=== PATIENT | female | born 1995 | race African-American/Black ===

== ENCOUNTER 2019-08-14 08:52 | Observation (INO) | payer SELFPAY ==
[2019-08-14] VITALS (11 sets, daily range): BP systolic 120–145; BP diastolic 67–100; PULSE 81–108; RESP 16–22; TEMP 36.4–37.1; O2SAT 100; BMI 24.7
--- NOTE | ~2019-08-14 | CT_ITS ---
EXAMINATION: CT abdomen pelvis w con EXAM DATE: 08/14/2019 13:10 INDICATION: Nausea vomiting and diarrhea, symptoms 3 days. History of irritable bowel syndrome. TECHNIQUE: Spiral CT of the abdomen and pelvis was performed without contrast. Axial, coronal and s agittal images were reviewed. The dose-length product (DLP) for this examination was 242.18 mGy-cm. The exposure was tailored according to patient size (auto mA exposure control), and iterative recons truction (ASIR) was used as additional dose reduction technique. There is no prior study for compari son. FINDINGS: The liver, spleen, adrenal glands and pancreas are unremarkable. Gallbladder is unremarkab le. No biliary obstruction. Portal and splenic veins are patent. Kidneys enhance symmetrically. T here is no hydronephrosis. There is IUD which appears to be centrally located within the endometriu m, expected position. The bladder is unremarkable. There is no retroperitoneal or pelvic lymphadeno minh. The appendix is normal. The stomach and small bowel are unremarkable. There is moderate amount of c olonic stool. No free intraperitoneal gas. The heart is normal in size. There are no pericardial or pleural effusions. The lung bases are unremarkable. The bones are unremarkable. IMPRESSION: 1. Moderate amount of colonic stool. Reviewed, dictated and finalized at location B. [employer]
--- NOTE | 2019-08-14 09:03 | ED.NAVMDI ---
HPI - Nausea/Vomiting/Diarrhea General Chief complaint: Nausea/Vomiting/Diarrhea Stated complaint: N/V/D X3D HX IBS Time Seen by Provider: 08/14/19 09:00 Source: patient and RN notes reviewed Mode of arrival: ambulatory Limitations: no limitations History of Present Illness HPI Narrative: Pt is a 23 y/o -[place] Citizen female with a Hx of IBS, who presents to the ED with c/o nausea and vomiting starting 3-4 days ago. She notes that she was diagnosed with pneumonia last week. Pt states that she has since finished a course of antibiotics, and notes that her cough has improved. She states that she has been unable to keep anything down for the past 3-4 days due to her vomiting. Pt also reports epigastric pain secondary to her vomiting, constipation, and dizziness, but denies any diarrhea, fever, or chills. She notes that she hasn't had a BM for the past 3-4 days, and states that she has only been able to belch. Pt notes that she has a Hx of similar symptoms, stating that they are IBS flare-ups of an unknown cause. She notes that she has been taking Zofran and Promethazine for her symptoms, stating that she last took Promethazine last night. MD elicited complaint: nausea and vomiting Pertinent past history: other (IBS) Onset (ago): day(s) (3-4) Associated nausea: Yes Associated abdominal pain: Yes Location of pain: epigastric Associated symptoms: other (dizziness; constipation; decreased intake) Treatment prior to arrival: other (Zofran; Promethazine) Related Data Home Medications Medication Instructions Recorded Confirmed escitalopram oxalate 10 mg PO DAILY 08/14/19 08/14/19 ondansetron HCl [Zofran] 4 mg PO DAILY PRN 08/14/19 08/14/19 promethazine 25 mg BYMOUTH DAILY PRN 08/14/19 08/14/19 propranolol 10 mg PO Q12H PRN 08/14/19 08/14/19 Allergies Allergy/AdvReac Type Severity Reaction Status Date / Time Penicillins Allergy Intermediate Rash Verified 08/14/19 09:08 Review of Systems Review of Systems: All systems reviewed & are unremarkable except as noted in HPI and below Constitutional: Constitutional: Denies chills, Denies fever(s) and Reports other (decreased intake) Gastrointestinal: Gastrointestinal: Reports abdominal pain (epigastric pain), Reports constipation, Denies diarrhea, Reports nausea and Reports vomiting Neurologic: Reports dizziness PMFSH Past Medical History Medical History (Updated 08/14/19 @ 17:48 by Bernadette Solano MD) IBS (irritable bowel syndrome) Pneumonia Surgical History Surgical History Hx of endoscopy upper GI Family History Family History (Updated 08/14/19 @ 15:40 by Yun Dan RN) Mother Diabetes mellitus Hypertension Social History Social History (Updated 08/14/19 @ 09:15 by Mann Amezcua) Smoking status: Never smoker Alcohol intake: current Drinks per week: 1 Substance use: never Gender identity (if verbalized by the patient): Female Spiritual care concerns: No Agree to blood products: Yes Exam Narrative: Exam Narrative: GENERAL: Well-appearing, well-nourished, patient is dry heaving HEAD: Normocephalic, atraumatic EYES: PERRLA and EOMI, conjunctiva clear without discharge THROAT:Mucous membranes moist, Oropharynx normal without erythema, exudate, peritonsillar swelling or fluctuance NECK: Supple, without lymphadenopathy or mass RESPIRATORY: No respiratory distress, Airway patent, Respirations non-labored, Clear to auscultation without rales, rhonchi or wheeze HEART: Regular rate and rhythm. No murmur heard. Normal peripheral pulses. ABDOMEN: Soft, mild diffuse tenderness, nondistended, normal active bowel sounds. No masses. No rebound or guarding, No organomegaly. EXTREMITIES: No edema, normal strength with full range of motion. SKIN: Warm, dry, normal color without rash NEURO: Alert and oriented x3. CN 2-12 grossly intact. No focal deficits. PSYCH: Normal mood and affect. Course Ree
[2019-08-14] MEDS: PROMETHAZINE HCL 25 MG/ML AMPUL 12.5 MG IV PUSH ×2 (09:25→15:29)
[2019-08-14] MEDS: FAMOTIDINE 20 MG/2 ML VIAL IV PUSH ×2 (09:26→20:10)
[2019-08-14] MEDS: LACTATED RINGERS 1,000 ML 999 ML IV CONT (09:29)
[2019-08-14 09:40] LABS: Basophils Percent Auto 0.1 % (0.2-1.2); Eosinophils Absolute Auto 0.1 K/mm3 (0-0.3); Eosinophils Percent Auto 0.7 % (0-4.4); Hematocrit 41.8 % (37.0-47.0); Hemoglobin 13.1 g/dL (12.0-15.0); Immature Granulocyte Absolute 0.02 K/mm3 (0.00-0.031); Immature Granulocyte Percent A 0.3 % (0-0.5); Lymphocytes Absolute Auto 2.08 K/mm3 (0.9-3.2); Mean Corpuscular HGB Conc 31.3 g/dl (32-36); Mean Corpuscular Volume 86.2 fl (80-100); Mean Platelet Volume 10.9 fl (7.4-10.4); Monocytes Absolute Auto 0.9 K/mm3 (0.1-0.6); Neutrophils Absolute Auto 4.2 K/mm3 (1.3-6.7); Neutrophils Percent Auto 57.9 % (45.5-73.1); Platelet Count Result 367 k/mm3 (150-375); Red Blood Count 4.85 M/mm3 (4.2-5.4); Red Cell Distribution Width 13.3 % (11.5-14.5); White Blood Count 7.2 K/mm3 (4.5-10.0)
[2019-08-14 09:51] LABS: Alanine Aminotransferase 41 U/L (4-35); Albumin Level 4.6 g/dL (3.5-5.1); Alkaline Phosphatase 118 U/L (38-126); Aspartate Amino Transferase 32 U/L (14-36); Bilirubin,Total 0.5 mg/dL (0.2-1.3); Blood Urea Nitrogen 7 mg/dL (7-17); Calcium 9.1 mg/dL (8.4-10.2); Carbon Dioxide 26 mmol/L (22-30); Chloride 100 mmol/L (98-107); Estimated CRCL calculation 102 ml/min; Estimated Glomerular Filt Rate > 60; Glucose 109 mg/dL (65-105); Lipase 163 U/L (23-300); Potassium 3.2 mmol/L (3.4-5.0); Sodium 137 mmol/L (137-145)
[2019-08-14 09:54] LABS: Add Urine Microscopic? YES; Appearance Urine Clear (Clear); Bacteria Urine Trace /hpf; Bilirubin Urine Negative (Negative); Blood Urine 1+ (Negative); Color Urine Yellow (Yellow); Glucose Urine UA Negative (Negative); Ketones Urine Trace mg/dL (Negative); Leukocyte Esterase Ur Negative LEU/UL (Negative); Mucus Urine Moderate /lpf; Nitrate Urine Negative (Negative); Protein Urine Negative (Negative); Specific Grav Ur 1.024 (1.001-1.035); Squamous Epithelial Cell Urine Few /hpf (Few); Urobilinogen Urine Negative mg/dL (<2.0); WBC Urine 0-3 /hpf
[2019-08-14] MEDS: METOCLOPRAMIDE HCL INJ 10 MG/2 ML VIAL IV PUSH (10:34)
--- NOTE | 2019-08-14 12:24 | PC.NURSE ---
pt drowsy. vitals stable. denies nausea at this time. crackers and water offered as po challenge per md orders
[2019-08-14] MEDS: PANTOPRAZOLE SODIUM IV 40 MG VIAL IV PUSH (13:19)
[2019-08-14] MEDS: ONDANSETRON INJ 4 MG/2 ML VIAL IV PUSH ×2 (13:19→20:14)
--- NOTE | 2019-08-14 15:17 | PC.NURSE ---
This patient, Fermin Gomez, was admitted to 2 Medical Room 259-. Patient/family oriented to hospital policies and general routines including ID bracelet, bed and alarms, visiting hours, pain management, procedures, bathroom and other care routines, personal items, smoking policy, room service/diet, and visiting hours. Valuables list has been completed. Information on how to activate the Rapid Response Team has been discussed. Patient/Family are encouraged to report perceived risks to care and to ask questions if they do not understand what they are told or what they should do.
[2019-08-14] MEDS: LACTATED RINGERS 1,000 ML 125 ML IV CONT (15:29)
--- NOTE | 2019-08-14 18:09 | PM.IMHP ---
H&P: HPI History of Present Illness Chief complaint: intractable nausea and vomiting Narrative: Fermin Gomez is a 23 year old female, history of IBS, under GI in [place], pt from [place], studying here. Pt has been nauseated for 3 days has not opened her bowel for 3-4 days, feels fullness in her belly, usually on phergenan at home. Pt had egd before not had colonoscopy, ct scan here, shows moderate stool. ED doctors mentions recent pneumonia pt denies SOB or cough here. Pt appears anxious. Review of Systems Constitutional: Constitutional: Reports fatigue, Denies fever(s) and Reports poor appetite Respiratory: Respiratory: Denies no additional respiratory complaints Gastrointestinal: Gastrointestinal: Reports constipation and Reports GI cramping Neurologic: Denies system reviewed and no additional complaints, except as documented Psychiatric: Psychiatric: Reports anxiety PMFSH Past Medical History Medical History IBS (irritable bowel syndrome) Pneumonia Surgical History Surgical History Hx of endoscopy upper GI Family History Family History Mother Diabetes mellitus Hypertension Social History Social History Smoking status: Never smoker Alcohol intake: current Drinks per week: 1 Substance use: never Gender identity (if verbalized by the patient): Female Spiritual care concerns: No Agree to blood products: Yes Meds Home Medications and Allergies Home Medications Medication Instructions Recorded Confirmed Type escitalopram oxalate 10 mg PO DAILY 08/14/19 08/14/19 History ondansetron HCl [Zofran] 4 mg PO DAILY PRN 08/14/19 08/14/19 History promethazine 25 mg BYMOUTH DAILY PRN 08/14/19 08/14/19 History propranolol 10 mg PO Q12H PRN 08/14/19 08/14/19 History calcium polycarbophil [Fiber 1,250 mg PO BID #60 tablet 08/15/19 Rx (calcium polycarbophil)] docusate sodium 100 mg PO Q12HR #60 cap 08/15/19 Rx ondansetron 4 mg PO DAILY PRN #30 tablet 08/15/19 Rx polyethylene glycol 3350 [Miralax] 17 g PO QAM #60 ea 08/15/19 Rx promethazine 25 mg PO DAILY PRN #30 tablet 08/15/19 Rx Allergies Allergy/AdvReac Type Severity Reaction Status Date / Time Penicillins Allergy Intermediate Rash Verified 08/14/19 09:08 Vital Signs Vital Signs - 24 hr 08/14/19 08:57 08/14/19 09:32 08/14/19 09:34 Temperature 36.4 C L Pulse Rate 107 H 95 97 Respiratory Rate 22 H Blood Pressure 145/100 H 130/94 H 132/98 H Pulse Oximetry 100 08/14/19 09:35 08/14/19 10:35 08/14/19 12:24 Temperature Pulse Rate 108 H 85 88 Respiratory Rate 16 Blood Pressure 144/93 H 129/85 138/78 Pulse Oximetry 100 08/14/19 13:23 08/14/19 14:58 08/14/19 14:59 Temperature 37.1 C 37.1 C Pulse Rate 86 86 86 Respiratory Rate 18 18 18 Blood Pressure 120/85 123/91 H 123/91 H Pulse Oximetry 100 100 08/14/19 15:28 Temperature 36.5 C Pulse Rate 84 Respiratory Rate 18 Blood Pressure 124/67 Pulse Oximetry 100 Exam Const: General: well developed Nutritional Appearance: well nourished HENMT: Head: normocephalic Eyes: General: appearance normal, both eyes and all related structures Pupils: Equal, round and reactive pupils present Neck: Neck: supple Chest: Chest palpation & inspection: normal inspection of the chest Resp: Effort & Inspection: normal respiratory effort Auscultation: clear to auscultation bilaterally Cardio: Jugular venous distension: no JVD Rhythm: regular rhythm Heart sounds: S1 normal heart sound present and S2 normal heart sound present GI: Inspection: normal to inspection GI Palp: Yes Other GI palpation findings present (Abdominal distension ) Auscultation: normal bowel sounds : General: Yes no CVA tenderness Back/Spine/Pelvis: Back:
[2019-08-14] MEDS: DOCUSATE SODIUM 100 MG CAPSULE PO (20:10)
[2019-08-15] MEDS: LACTATED RINGERS 1,000 ML 125 ML IV CONT (00:14)
[2019-08-15] MEDS: ONDANSETRON INJ 4 MG/2 ML VIAL IV PUSH ×4 (00:16→13:26)
[2019-08-15] MEDS: PROMETHAZINE HCL 25 MG/ML AMPUL 12.5 MG IV PUSH ×2 (01:01→11:47)
[2019-08-15 06:00] VITALS: BP 106/62; PULSE 87; RESP 18; TEMP 37.1; O2SAT 99
[2019-08-15] MEDS: FAMOTIDINE 20 MG/2 ML VIAL IV PUSH (09:40)
[2019-08-15] MEDS: ESCITALOPRAM OXALATE 10 MG TABLET PO (10:16)
[2019-08-15] MEDS: polyethylene glycoL 3350 17 GM POWD.PACK PO (10:16)
[2019-08-15] MEDS: LACTULOSE 20 GM/30 ML UDC PO ×2 (10:16→14:41)
[2019-08-15] MEDS: DOCUSATE SODIUM 100 MG CAPSULE PO (10:16)
[2019-08-15 13:20] VITALS: PULSE 82
[2019-08-15] MEDS: PROPRANOLOL HCL 10 MG TABLET PO (13:20)
--- NOTE | 2019-08-15 13:44 | PC.NURSE ---
Patient's mother at bedside and requesting to speak with Dr. Lange about sending patient to hospital in [place], [place] because patient follows with GI doctor there. Will call and notify Dr. Lange of patient's mothers request.
[2019-08-15 14:00] VITALS: BP 117/84; PULSE 77; RESP 16; TEMP 36.8; O2SAT 99
[2019-08-15] MEDS: GLYCERIN ADULT 1 SUPP.RECT RECTAL (14:22)
--- NOTE | 2019-08-15 16:10 | WPDGICN ---
Assessment and Plan Additional Plan This is a 23-year-old black female patient I am asked to see at the request of the hospitalist service. Patient has a history of recurrent nausea vomiting. This appears to be associated with intervals of constipation. She current episode began approximately 3 days ago associated with nausea vomiting. She has had very infrequent stools during this interval. Her stools are pellet-like. She reports straining with bowel movements. She denies any blood in her stools. She denies any weight loss. She has had minimal intake because of nausea vomiting over the last 3 days. She does not have a routine bowel routine. She takes 1 fiber pill a day. She states she was last hospitalized with similar symptoms 1 year ago while living in [place]. Currently she is a student at [employer]. Family history is noncontributory. Past medical history as stated is significant for recurrent constipation associated with nausea vomiting. Current medications include propranolol for anxiety. Zofran and Compazine. Lexapro. She has a possible allergy to penicillin. Social history reveals that she has an [employer] student. She does not drink alcohol. She does not smoke marijuana. Physical exam reveals Vital Signs to be stable. HEENT exam unremarkable. She is anicteric. Lungs are clear to auscultation and percussion. Heart is without murmur or extra sounds. Abdominal exam bowel sounds are present soft she appears somewhat full intense diffusely. No localized tenderness is appreciated. No organomegaly noted. Rectal exam unremarkable. Laboratory work reveal CBC to be normal. Electrolytes unremarkable. Liver function tests normal. CT scan reveals a large amount of stool. Impression 1. Nausea vomiting. Appears to be related to constipation. Cyclical vomiting cannot be excluded. 2. Constipation. Appears to be an ongoing problem and most likely etiology for her nausea vomiting. A routine use of laxative such as MiraLax is advised will be started. Suppositories and enemas will be given as needed. If she cannot tolerate oral intake. 3. Depression. Lexapro may contribute to her constipation Plan is to start a bowel regime with MiraLax. Outpatient GI evaluation may be considered in the future. GI Consult Note Consult date/time: 08/15/19 16:10 HPI: Fermin Gomez is a 23 year old female [facility] Past Medical History Medical History IBS (irritable bowel syndrome) Pneumonia Surgical History Surgical History Hx of endoscopy upper GI Family History Family History Mother Diabetes mellitus Hypertension Social History Social History Smoking status: Never smoker Alcohol intake: current Drinks per week: 1 Substance use: never Gender identity (if verbalized by the patient): Female Spiritual care concerns: No Agree to blood products: Yes Meds Home Medications and Allergies Home Medications Medication Instructions Recorded Confirmed Type escitalopram oxalate 10 mg PO DAILY 08/14/19 08/14/19 History ondansetron HCl [Zofran] 4 mg PO DAILY PRN 08/14/19 08/14/19 History promethazine 25 mg BYMOUTH DAILY PRN 08/14/19 08/14/19 History propranolol 10 mg PO Q12H PRN 08/14/19 08/14/19 History Allergies Allergy/AdvReac Type Severity Reaction Status Date / Time Penicillins Allergy Intermediate Rash Verified 08/14/19 09:08 Vital Signs Vital Signs - 24 hr 08/14/19 22:00 08/15/19 06:00 08/15/19 13:20 Temperature 36.6 C 37.1 C Pulse Rate 81 87 82 Respiratory Rate 20 18 Blood Pressure 126/73 106/62 Pulse Oximetry 100 99 08/15/19 14:00 Temperature 36.8 C Pulse Rate 77 Respiratory Rate 16 Blood Pressure 117/84 Pulse Oximetry 99 Results Labs CB
--- NOTE | 2019-08-15 17:04 | PM.DS ---
DS: Diagnosis Discharge Diagnosis (1) IBS (irritable bowel syndrome): Code(s): K58.9 - Irritable bowel syndrome without diarrhea Status: Acute Assessment and Plan: Known history of IBS, sees a GI doctor in [place]. History of anxiety and depression. (2) Constipation: Code(s): K59.00 - Constipation, unspecified Status: Resolved Assessment and Plan: Miralax, Colace, Suppository, pt has had a bowel movement, stable for discharge. Pt seen by GI pt to keep a regular bowel movement. (3) Intractable vomiting with nausea: Code(s): R11.2 - Nausea with vomiting, unspecified Status: Resolved Assessment and Plan: IV fluids, IV zofran, transition back to her own medications DS: Summary Time Spent with Patient Time attestation: Total time spent providing and/or coordinating discharge services:38 minutes on day of discharge Exam Const: General: well developed Nutritional Appearance: well nourished HENMT: Head: normocephalic Eyes: General: appearance normal, both eyes and all related structures Pupils: Equal, round and reactive pupils present Neck: Neck: supple Chest: Chest palpation & inspection: normal inspection of the chest Resp: Effort & Inspection: normal respiratory effort Auscultation: clear to auscultation bilaterally Cardio: Jugular venous distension: no JVD Rhythm: regular rhythm Heart sounds: S1 normal heart sound present and S2 normal heart sound present GI: Inspection: normal to inspection Auscultation: normal bowel sounds : General: Yes no CVA tenderness Back/Spine/Pelvis: Back: no CVA tenderness Skin: General skin exam: normal color and dry skin Neuro: Cranial nerves: Yes CN's II-XII intact bilaterally and Yes Equal, round and reactive pupils present Cognition (Neuro): normal cognition Speech: normal speech Motor exam (neuro): 5/5 motor strength present throughout Extrem: General: normal to inspection Psych: Appearance: grossly normal Mental Status: mental status grossly normal Discharge Plan Discharge Attending physician on discharge: Katya Lange Consulting providers: Farhat Reyes ; Shabbir Cook Discharging Clinician: Katya Lange Anticipated Discharge Date/Time: 08/15/19 17:04 Patient Disposition: Home, Self-Care Activity: as tolerated Diet: high fiber Discharge Instructions: Pt admitted 08/14 off until 08/18 Return to back to school without restriction Patient Instructions: Antibiotic Form, Irritable Bowel Syndrome (DC), Constipation (DC), Pain Management (DC), Acute Nausea and Vomiting (DC) Stand Alone Forms: General Discharge Information, Work/School Release IP Follow-up/Referrals: Farhat Reeys MD [Physician] - Discharge Medications: New promethazine 25 mg Tablet 25 mg PO DAILY PRN (Reason: Nausea And Vomiting) Qty: 30 RF: 0 polyethylene glycol 3350 [Miralax] 17 gram Powder In Packet 17 g PO QAM Qty: 60 RF: 0 calcium polycarbophil [Fiber (calcium polycarbophil)] 625 mg Tablet 1,250 mg PO BID Qty: 60 RF: 0 ondansetron 4 mg Tablet,Disintegrating 4 mg PO DAILY PRN (Reason: Nausea And Vomiting) Qty: 30 RF: 0 docusate sodium 100 mg Capsule 100 mg PO Q12HR Qty: 60 RF: 0 Continued ondansetron HCl [Zofran] 4 mg Tablet 4 mg PO DAILY PRN (Reason: Nausea And Vomiting) RF: 0 escitalopram oxalate 10 mg tablet 10 mg PO DAILY RF: 0 promethazine 25 mg BYMOUTH DAILY PRN (Reason: Nausea And Vomiting) RF: 0 propranolol 10 mg Tablet 10 mg PO Q12H PRN (Reason: Anxiety) RF: 0 Date of admission: 08/14/19 14:19 Primary Care Provider: PHYSICIAN,PLATE SETTER Admitting Provider: Katya Lange Attending physician on admission: Katya Lange Condition: Stable
== END 2019-08-15 17:55 | disposition home or self-care (01) ==
LOC: ANHED 14:23 → ANH2MED 14:32
PROVIDERS: Admitting Provider Family Medicine; Emergency Provider General Practice; Visit Provider Family Medicine
DX: K58.1 Irritable bowel syndrome with constipation (principal); R11.2 Nausea with vomiting, unspecified; F32.9 Major depressive disorder, single episode, unspecified
CPT/HCPCS: 36415; 74177; 80053; 81001; 81025; 83690; 85025; 96361; 96374; 96375; 96376; 99285; A9270; C9113; G0378; G0379; J0131; J1200; J2405; J2550; J2765; J7120; Q9967